=== PATIENT | male | born 1950 | race Caucasian/White ===

== ENCOUNTER 2017-06-17 07:06 | Emergency (ER) | payer MEDICARE, BC ==
[~2017-06-17] VITALS: Ht 180.3 cm; Wt 88.6 kg
[~2017-06-17 07:06] MED LIST: ASPI81TA52 PO; CARB1TAB23 PO; ENOX100S3 SQ; FLUT1DIS4 INH; LOSA50TA3 PO; MAG400T PO; METO50TA7 PO; NIA500ERT PO; OMEG1CAP PO; PRAS5TAB3 PO; ROSU40TA PO
[2017-06-17 08:00] LABS: CLARITY,URINE TURBID (Clear); COLOR,URINE RED (Yellow)
[2017-06-17 08:04] LABS: UA COLLECTION TYPE URINAL
[2017-06-17 08:08] LABS: BACTERIA,URINE NONE SEEN /HPF (Neg); RBC,URINE TNTC /HPF (0-2); WBC,URINE 30-50 /HPF (0-4)
[2017-06-17 08:09] LABS: MUCUS STRANDS FEW /LPF (Neg); SQUAMOUS EPITHELIAL CELL,UR NONE SEEN /LPF (FEW)
[2017-06-17] MEDS ORDERED: normal saline 1000ML IV soln IV ONE (09:45)
[2017-06-17 09:48] VITALS: BP 142/68
== END 2017-06-17 09:54 | disposition home or self-care (01) ==
LOC: ER 07:07
DX: R31.0 Gross hematuria (principal); I25.10 Atherosclerotic heart disease of native coronary artery without angina pectoris; I11.0 Hypertensive heart disease with heart failure; I25.2 Old myocardial infarction; G89.29 Other chronic pain; J44.9 Chronic obstructive pulmonary disease, unspecified; I50.9 Heart failure, unspecified; Z79.82 Long term (current) use of aspirin; Z79.899 Other long term (current) drug therapy
CPT/HCPCS: 81001; 87088; 99284; A4315

== ENCOUNTER 2018-03-25 14:37 | Outpatient (CLI) | payer OTHER | END 2018-03-25 23:59 | disposition home or self-care (01) | LOC: CARD DIAG 14:37 | PROVIDERS: ATTEND Internal Medicine Cardiovascular Disease | DX: I34.0 Nonrheumatic mitral (valve) insufficiency (principal); I35.8 Other nonrheumatic aortic valve disorders; I51.7 Cardiomegaly; I25.2 Old myocardial infarction; J44.9 Chronic obstructive pulmonary disease, unspecified; I10 Essential (primary) hypertension; Z79.82 Long term (current) use of aspirin | CPT/HCPCS: 93306 ==

== ENCOUNTER 2018-04-11 16:26 | Inpatient (IN) | payer MEDICARE, BC, OTHER | END 2018-04-13 14:35 | disposition home or self-care (01) | LOC: ER 16:26 → PCU 3S 04-12 02:36 → ED HOLD 22:22 | DX: I21.4 Non-ST elevation (NSTEMI) myocardial infarction (principal); G12.21 Amyotrophic lateral sclerosis; I50.9 Heart failure, unspecified ==

== ENCOUNTER 2019-08-13 08:03 | Day surgery (SDC) | payer MEDICARE, BC ==
[2019-08-07 12:49] LABS: BASOPHILS # (AUTO) 0.1 X10'3 (0-0.2); BASOPHILS % (AUTO) 0.8 % (0-1); EOSINOPHILS # (AUTO) 0.3 X10'3 (0-0.9); EOSINOPHILS % (AUTO) 4.6 % (0-6); LYMPHOCYTES # (AUTO) 1.8 X10'3 (1.1-4.8); LYMPHOCYTES % (AUTO) 28.5 % (21-51); MEAN CORPUSCULAR HEMOGLOBIN 28.3 PG (27.0-31.0); MEAN CORPUSCULAR HGB CONC 33.3 g/dL (33.0-36.5); MEAN PLATELET VOLUME 9.2 FL (7.4-10.4); MONOCYTES # (AUTO) 0.6 X10'3 (0-0.9); MONOCYTES % (AUTO) 10.1 % (2-12); NEUTROPHILS # (AUTO) 3.6 X10'3 (1.8-7.7); PRE OP HEMATOCRIT 38.9 % (42.0-52.0); PRE OP HEMOGLOBIN 12.9 g/dL (14.0-17.9); PRE OP PLATELET COUNT 157 X10'3 (140-440); RED BLOOD COUNT 4.57 X10'6 (4.70-6.10); RED CELL DISTRIBUTION WIDTH 14.2 % (11.5-14.5)
[2019-08-07 13:01] LABS: ALBUMIN 3.8 G/DL (3.4-5.0); ALBUMIN/GLOBULIN RATIO 1.2 (1.1-1.5); ALKALINE PHOSPHATASE 92 IU/L (46-116); BLOOD UREA NITROGEN 19 MG/DL (7-18); BUN/CREATININE RATIO 18.4 (5.4-32.0); CALCIUM 8.9 MG/DL (8.5-10.1); CHLORIDE 111 MMOL/L (99-107); CREATININE 1.03 MG/DL (0.60-1.10); PRE OP ALT 24 U/L (30-65); PRE OP ANION GAP 6 (8-16); PRE OP AST 22 U/L (10-37); PRE OP BILIRUB, TOTAL 0.6 MG/DL (0.0-1.0); PRE OP GLUCOSE 95 MG/DL (70-104); PRE OP POTASSIUM 4.1 MMOL/L (3.4-5.1); PRE OP SODIUM 146 MMOL/L (135-145); TOTAL CARBON DIOXIDE 28.9 MMOL/L (24-32); TOTAL PROTEIN 6.9 G/DL (6.4-8.2); eGFR 72 ML/MIN
[2019-08-07 13:05] LABS: PRE OP PROTIME 10.7 SECONDS (9.0-12.0)
[~2019-08-13] VITALS: Ht 180.3 cm; Wt 86.0 kg
[2019-08-13] VITALS (7 sets, daily range): BP systolic 108–133; BP diastolic 70–94
[~2019-08-13 08:03] MED LIST changes: +BACL20TA PO; -CARB1TAB23 PO; +CITA20TA28 PO; -ENOX100S3 SQ; -FLUT1DIS4 INH; +GLYC2TAB21 PO; +IPRA3AMP31 IH; -OMEG1CAP PO; -PRAS5TAB3 PO; +RILU50TA3 PO; +TICA90TA PO; +albuterol 2.5 MG/3 ML nebule NEB ONE; +ceFAZolin 1GM/D5W- ADD-VANTAGE 50 ML IV ONE; +cefazolin/dext.iso 2gm/50ml 50 ML IV ONE; +famotidine 20mg tablet PO ONE; +ringers solution, lacted 1,000 ML IV SCH
[2019-08-13] MEDS ORDERED: LIDOcaine 1% 30ml preserv. free vial ONE (10:00)
[2019-08-13] MEDS ORDERED: midazolam 2 mg/2 ml injection ONE (10:13)
[2019-08-13] MEDS ORDERED: fentaNYL/PF 50MCG/1 ML 2ML syringe ONE (10:13)
[2019-08-13] MEDS ORDERED: ketamine 50mg/5ml syringe ONE (10:14)
[2019-08-13] MEDS ORDERED: glycopyrrolate 0.2mg/ml inj ONE (10:38)
--- NOTE | 2019-08-13 11:39 | NUR ---
All dc criteria for discharge home has been met. IV taken out without complications. All questions answered regarding dc paperwork. Vss. Significant other present to take patient home. Dressings cdi and vital signs stable. Taken out via wheelchair to personal vehicle where patient taken home by family/friend. DAUGHTER PRESENT FOR RECOVERY PERIOD AND ASSISTED IN DRESSING PATIENT, ALL QUESTIONS ANSWERED, SLIP TIP SYRINGE PROVIDED BY MELINDA ELIZABETH UPON DC TO FLUSH THE TUBE. OUT VIA PERSONAL WHEELCHAIR. WHERE I ASSISTED HIM INTO THE FRONT PASSENGER SEAT AND SECURED WITH A SEAT BELT. DRIVEN HOME BY SONYA..(S.O). Addendum: 08/13/19 at 1214 by Tacos Ruggiero RN, RN Amended: Links added.
== END 2019-08-13 11:39 | disposition home or self-care (01) ==
LOC: PAS 08:03
PROVIDERS: ATTEND Internal Medicine Gastroenterology
DX: R13.10 Dysphagia, unspecified (principal); G21.4 Vascular parkinsonism; J45.909 Unspecified asthma, uncomplicated; G47.30 Sleep apnea, unspecified; I25.2 Old myocardial infarction; Z79.82 Long term (current) use of aspirin; Z79.01 Long term (current) use of anticoagulants; Z79.899 Other long term (current) drug therapy; Z96.653 Presence of artificial knee joint, bilateral; Z98.890 Other specified postprocedural states; Z11.59 Encounter for screening for other viral diseases
CPT/HCPCS: 36415; 43246; 71046; 80053; 82948; 85025; 85610; 85730; J2001; J2250; J3010; U0003; A4615; B4087; J0690; J3490; J7120